=== PATIENT | male | born 1990 | race Two or more races ===

== ENCOUNTER 2023-02-22 10:04 | Emergency (ER) | payer OTHER ==
[2023-02-22 10:09] VITALS: BP 126/82; PULSE 77; RESP 18; TEMP 97.9; BMI 28.8
[2023-02-22] MEDS ORDERED: LIDOCAINE 5% TOPICAL PATCH TP ONE (11:37)
[2023-02-22] MEDS ORDERED: ACETAMINOPHEN 500 MG TABLET (FP) PO ONE (11:37)
[2023-02-22] MEDS ORDERED: KETOROLAC TROMETHAMINE 30 MG/1 ML VIAL IM ONE (11:37)
[2023-02-22] MEDS ORDERED: LIDOCAINE 5% TOPICAL PATCH ONE (11:40)
[2023-02-22] MEDS ORDERED: KETOROLAC TROMETHAMINE 30 MG/1 ML VIAL ONE (11:40)
[2023-02-22] MEDS ORDERED: ACETAMINOPHEN 500 MG TABLET (FP) ONE (11:40)
[2023-02-22] MEDS ORDERED: LIDOCAINE PATCH REMOVAL MC SCH (22:00)
== END 2023-02-22 13:04 | disposition home or self-care (01) ==
LOC: JERFT 10:04
PROC: 3E0233Z Introduction of Anti-inflammatory into Muscle, Percutaneous Approach (ICD-10-PCS; principal; 2023-02-22)
DX: M54.50 Low back pain, unspecified (principal)
CPT/HCPCS: 99284-25